=== PATIENT | female | born 1965 | race Caucasian/White ===

== ENCOUNTER 2017-11-21 21:43 | Emergency (ER) | payer BC ==
[~2017-11-21] VITALS: Ht 162.6 cm; Wt 91.6 kg
[2017-11-21 22:49] LABS: HEMATOCRIT 39.5 % (36.0-46.0); HEMOGLOBIN 13.7 G/DL (11.9-15.5); MCH 28.1 PG (29.0-34.0); MCHC 34.7 G/DL (30.0-36.0); MCV 80.9 FL (83-99); PLATELET COUNT 282 K/uL (156-360); RBC DIS.WIDTH-CV 13.8 % (11.8-14.6); RED BLOOD COUNT 4.88 M/uL (3.80-5.20); WHITE BLOOD COUNT 6.6 K/uL (4.1-10.2)
[2017-11-21 22:59] LABS: ALBUMIN 4.1 g/dL (3.2-4.8); CHLORIDE 106 mEq/L (99-109); POTASSIUM 3.9 mEq/L (3.7-5.4); SODIUM 139 mEq/L (136-147)
[2017-11-21 23:01] LABS: GLUCOSE 115 mg/dL (70-99); TOTAL PROTEIN 7.2 g/dL (6.4-8.3)
[2017-11-21 23:03] LABS: TOTAL BILIRUBIN 0.5 mg/dL (0.0-1.0)
[2017-11-21 23:05] LABS: ALKALINE PHOSPHATASE 118 IU/L (3-129); CREATININE 0.8 mg/dL (0.6-1.3); GFR ESTIMATE (CALCULATED) > 59 mL/min/
[2017-11-21 23:06] LABS: AST (GOT) 21 IU/L (2-34); UREA NITROGEN (BUN) 17 mg/dL (9-23)
[2017-11-21 23:08] LABS: ALT (GPT) 17 IU/L (3-49)
[2017-11-22 00:50] LABS: LIPASE 60 U/L (1.0-51.0)
[2017-11-22 05:43] VITALS: BP 110/64
== END 2017-11-22 05:45 | disposition short-term general hospital (02) ==
LOC: EME 21:43
PROVIDERS: Nurse Practitioner Family
DX: K56.609 Unspecified intestinal obstruction, unspecified as to partial versus complete obstruction (principal); Z98.84 Bariatric surgery status; Z87.442 Personal history of urinary calculi; Z90.49 Acquired absence of other specified parts of digestive tract; Z88.2 Allergy status to sulfonamides
CPT/HCPCS: 71045; 74177; 80053; 81003; 83690; 85027; 99281; 99285; J1200; J2270; J2405; J3010; J7030